=== PATIENT | male | born 1965 | race Caucasian/White ===

== ENCOUNTER 2024-12-07 08:42 | Day surgery (SDC) | payer BC ==
[2024-12-07] MEDS ORDERED: Flumazenil 0.1 MG/ML 5 ML MDV IV ONE (08:43)
[2024-12-07] MEDS ORDERED: Ketamine 500 mg/10 ML MDV IV ONE (08:43)
[2024-12-07] MEDS ORDERED: Midazolam 1 MG/ML 2 ML SDV IV ONE (08:43)
[2024-12-07] MEDS ORDERED: Lidocaine 2% 100 MG/5 ML Syringe IVPUSH ONE (08:43)
[2024-12-07] MEDS ORDERED: Propofol 200 MG/20 ML SDV IV ONE (08:43)
[2024-12-07] MEDS ORDERED: Sodium Chloride 0.9% 10 ML Syringe FLUSH PRN (08:45)
[2024-12-07] MEDS: Lactated Ringers 1,000 ML IV SCH (09:20)
[2024-12-07] MEDS: Simethicone Drops 40 MG/0.6 ML 30 ML Bottle ONE (10:03)
== END 2024-12-07 11:50 | disposition home or self-care (01) ==
LOC: FB.SDS 08:42
PROVIDERS: ATTEND Surgery
DX: Z12.11 Encounter for screening for malignant neoplasm of colon (principal); D12.0 Benign neoplasm of cecum; D12.6 Benign neoplasm of colon, unspecified
CPT/HCPCS: 00811; 45384; 45385; 88305; 88341; 88342; A9270; J2250; J2704; J3490; J7120